=== PATIENT | female | born 1955 | race Two or more races ===

== ENCOUNTER 2022-05-18 10:06 | Outpatient (REF) | payer OTHER, SELFPAY ==
--- NOTE | ~2022-05-18 | XR_ITS ---
EXAMINATION: XR SACROILIAC JOINT XR LUMBAR SPINE WITH BENDING VIEWS CLINICAL INFORMATION: Spondylosis COMPARISON: None TECHNIQUE: 3 views SI joint and 7 views lumbar spine with bending views of lumbar spine FINDINGS: LUMBAR SPINE: There is normal lumbar lordosis. The vertebral heights and alignment is normal. There is loss of L2-L3, L3-L4, L4-L5 disc heights with mild ventral spondylosis. There is mild dextroscoliosis dorsolumbar spine. No aggressive lytic or sclerotic process. SACROILIAC JOINTS: The SI joints are symmetrical and normal. XR/XR sacroiliac joint min 3V IMPRESSION: Mild degenerative disc changes L2-L3, L3-L4, L4-L5 disc levels with mild ventral spondylosis. No visible acute fracture, dislocation or lytic process seen.
--- NOTE | ~2022-05-18 | XR_ITS ---
EXAMINATION: XR SACROILIAC JOINT XR LUMBAR SPINE WITH BENDING VIEWS CLINICAL INFORMATION: Spondylosis COMPARISON: None TECHNIQUE: 3 views SI joint and 7 views lumbar spine with bending views of lumbar spine FINDINGS: LUMBAR SPINE: There is normal lumbar lordosis. The vertebral heights and alignment is normal. There is loss of L2-L3, L3-L4, L4-L5 disc heights with mild ventral spondylosis. There is mild dextroscoliosis dorsolumbar spine. No aggressive lytic or sclerotic process. SACROILIAC JOINTS: The SI joints are symmetrical and normal. XR/XR lumbar spine 6V w bending IMPRESSION: Mild degenerative disc changes L2-L3, L3-L4, L4-L5 disc levels with mild ventral spondylosis. No visible acute fracture, dislocation or lytic process seen.
== END 2022-05-18 10:07 | disposition home or self-care (01) ==
LOC: HO.XRAY 10:06
PROVIDERS: PCP Internal Medicine; Visit Provider Nurse Practitioner Family
DX: M53.3 Sacrococcygeal disorders, not elsewhere classified (principal); M43.07 Spondylolysis, lumbosacral region; M19.90 Unspecified osteoarthritis, unspecified site
CPT/HCPCS: 72114; 72202

== ENCOUNTER 2022-05-22 09:45 | Outpatient (REF) | payer OTHER, SELFPAY ==
--- NOTE | ~2022-05-22 | MR_ITS ---
EXAMINATION: MR CERVICAL SPINE WITHOUT CONTRAST CLINICAL INFORMATION: Cervical radiculopathy. COMPARISON: No relevant prior imaging. TECHNIQUE: MRI of the cervical spine was obtained using routine sequences without contrast. FINDINGS: There is a slight anterolisthesis of C3 on C4 and slight retrolisthesis of C6 on C7. Alignment is otherwise normal. Vertebral heights are preserved. There is bone marrow edema involving the articular pillars of the left C3-C4 facet joint best depicted on sagittal STIR image 3 of 12 series 5. There are mixed degenerative endplate changes at C4-C5. There is loss of intervertebral disc height and T2 signal intensity at multiple levels related to disc degeneration. There is no cord compression or abnormal intramedullary signal changes. The cervicomedullary junction is normal. Limited visualization of the posterior fossa reveals no abnormal finding. Occipital condyles and lateral C1 masses are intact. The atlantodental joint and both C1-C2 articular facets are unremarkable. At C2-C3 the annular contour is normal. No canal or neuroforaminal compromise. At C3-C4 there is a slightly bulging disc. No canal stenosis. Asymmetric uncovertebral joint spurring and facet degenerative change causes mild left neuroforaminal encroachment. At C4-C5 there is a slightly bulging disc. Mild canal stenosis. Uncovertebral joint spurring and facet degenerative change causes moderate right neuroforaminal encroachment. At C5-C6 there is a slightly bulging disc. Mild canal stenosis. No neuroforaminal encroachment. At C6-C7 there is a slightly bulging disc. Mild canal stenosis. Asymmetric uncovertebral joint spurring causes mild left neuroforaminal encroachment. At C7-T1 the annular contour is normal. No canal or neuroforaminal compromise. Visualized soft tissues of the neck are normal. Vascular flow voids are grossly maintained. MR/MR cervical spine wo con IMPRESSION: There is multilevel degenerative spondylosis of the cervical spine. There is mild canal stenosis at levels of C4-C5, C5-C6, and C6-C7. No cord compression or abnormal intramedullary signal changes. Of note there is bone marrow edema involving articular pillars of the left articular facet joint and C3-C4 possibly representing aseptic inflammation in the setting of facet arthrosis. Asymmetric uncovertebral joint spurring and facet degenerative change at C4-C5 causes moderate right neuroforaminal encroachment. There is also mild left neuroforaminal narrowing at the levels of C3-C4 and C6-C7.
== END 2022-05-22 09:46 | disposition home or self-care (01) ==
LOC: HO.MRI 09:45
PROVIDERS: Visit Provider Nurse Practitioner Family
DX: M54.12 Radiculopathy, cervical region (principal); M47.812 Spondylosis without myelopathy or radiculopathy, cervical region
CPT/HCPCS: 72141

== ENCOUNTER 2022-08-14 06:24 | Outpatient (REF) | payer OTHER, SELFPAY ==
--- NOTE | ~2022-08-14 | FL_ITS ---
EXAMINATION: XR FLUOROSCOPY WITH IMAGES CLINICAL INFORMATION: M25.512 - Pain in left shoulder COMPARISON: None. TECHNIQUE: Fluoroscopy performed by Dr. Ganesh Bernal. Fluoroscopy time: 0.1 minutes. Cumulative Dose: 0.557 mGy. DAP: 0.152 Gy-cm2. Images: 1. FINDINGS: There is spinal needle with tip overlying the superior medial humeral head. There is intracapsular contrast in the shoulder joint capsule. No visible vascular communication. The acromioclavicular alignment is normal. There is probable calcific tendinosis in region of the distal superior rotator cuff. FL/FL guidance in treatment room IMPRESSION: Fluoroscopy for pain management procedure.
== END 2022-08-14 06:25 | disposition home or self-care (01) ==
LOC: CF 06:24
PROVIDERS: Visit Provider Anesthesiology
DX: M25.512 Pain in left shoulder (principal); M54.12 Radiculopathy, cervical region; M43.07 Spondylolysis, lumbosacral region; M47.812 Spondylosis without myelopathy or radiculopathy, cervical region; M53.3 Sacrococcygeal disorders, not elsewhere classified; M79.7 Fibromyalgia
CPT/HCPCS: 20610; J1100; J2795; J3300; Q9966

== ENCOUNTER 2022-09-13 10:07 | Outpatient (REF) | payer OTHER, SELFPAY ==
--- NOTE | ~2022-09-13 | XR_ITS ---
EXAMINATION: XR SHOULDER, LEFT CLINICAL INFORMATION: Pain in the left shoulder COMPARISON: None TECHNIQUE: AP external rotation, Grashey, scapular Y, and axillary views of the left shoulder. FINDINGS: There is localized amorphous appearing calcification in the region of the superior rotator cuff superior to the greater tuberosity. This extends over approximately 1 cm transverse. Acromioclavicular joint mild arthrosis. Glenohumeral joint: Normal. Surrounding bone and soft tissues are markable. XR/XR shoulder LT min 2V IMPRESSION: 1. Calcific tendinosis/calcific tendinitis of the rotator cuff. 2. Mild arthrosis of the acromioclavicular joint.
== END 2022-09-13 10:08 | disposition home or self-care (01) ==
LOC: HO.XRAY 10:07
PROVIDERS: PCP Internal Medicine; Visit Provider Nurse Practitioner Family
DX: M25.512 Pain in left shoulder (principal)
CPT/HCPCS: 73030

== ENCOUNTER 2022-09-18 06:20 | Outpatient (REF) | payer OTHER, SELFPAY ==
--- NOTE | ~2022-09-18 | FL_ITS ---
EXAMINATION: XR FLUOROSCOPY WITH IMAGES CLINICAL INFORMATION: M47.812 - Spondylosis without myelopathy or radiculopathy, cervical region COMPARISON: MR cervical spine 05/22/2022 TECHNIQUE: Fluoroscopy Supervised By: Dr. Ganesh Bernal. Fluoroscopy Time: 0.2 minutes. Cumulative Dose: 2.79 mGy. DAP: 0.593 Gycm2. Images: 3. FINDINGS: There are spinal needles overlying the left lateral masses cervical spine approximately at C4, C5, and C6. There is contrast in the paraspinal soft tissues and nerve sheaths. No visible vascular communication. FL/FL guidance in treatment room IMPRESSION: Fluoroscopy for pain management procedure.
== END 2022-09-18 06:21 | disposition home or self-care (01) ==
LOC: CF 06:20
PROVIDERS: Visit Provider Anesthesiology
DX: M47.812 Spondylosis without myelopathy or radiculopathy, cervical region (principal); M75.32 Calcific tendinitis of left shoulder
CPT/HCPCS: 64490; 64491

== ENCOUNTER 2022-11-01 11:00 | Outpatient (RCR) | payer OTHER, SELFPAY ==
--- NOTE | 2022-09-26 18:56 | MHC.PT.EP ---
[facility] [place] Office [place] Office [place] Office [address] Joan Ewing [address] [phone] F: [phone] F: [phone] F: [phone] F: [phone] Physical Therapy Plan of Care Date of Evaluation: Date of Surgery: Diagnosis: Calcific tendonitis L shoulder, cervical radiculopathy Assessment: Pt is a 67 y/o female with fibromyalgia who is referred to PT for eval and treat of calcific tendonitis of L shoulder resulting in decreased tolerance for reaching high shelves, dressing pullovers, laying on her L side, rotating her head, driving, performing HH chores as well as disturbed sleep secondary to decreased L shoulder and cervical ROM and strength, increased cervical and shoulder tissue tension, as well as cervical arthrosis, L shoulder calcific tendonosis, and L foraminal narrowing noted on imaging, and pain. Pt is deemed an appropriate candidate to receive skilled PT services to address their physical impairments in order to improve their functional ability. Frequency and Duration: The patient will be seen 2 x / wk x 5 wks. Short Term Goals: Initiate HEP. [employer] Operator Goals: I with HEP. Pt will be able to reach high shelves with managed Sx; initial: 06/16. Pt will be able to dress pull overs with < 4/10 difficulty / discomfort; initial 8/10. Pt will achieve symmetrical cervical AROM rotation. Pt will report no longer disturbed of sleep d/t cervical pain. Pt will report she can drive her car as long as she'd like with slight pain in her neck; initial: cannot drive as long as she'd like d/t moderate pain in her neck. Treatment Plan: Modalities to reduce pain, spasms and effusion. Manual therapy to restore motion and function. Therapeutic exercise to improve strength and flexibility. Neuromuscular re-education for posture and balance. Therapeutic activities to return to functional activities of daily living. Electronically signed by: Robe Bravo PT Please sign and return to therapist. Thank you for your referral.
--- NOTE | 2022-11-01 16:52 | MHC.PT.DC ---
[facility] [place] Office [place] Office [place] Office [address] Ewing [address] [phone] F: [phone] F: [phone] F: [phone] F: [phone] Physical Therapy Discharge Report Diagnosis: Calcific tendonitis L shoulder, cervical radiculopathy Date of Surgery: Date of Evaluation: 09/26/22 Date of Discharge: 11/01/22 Treatments to Date: 8 Cancellations to Date: No Shows to Date: Discharge Status: Improved Function Independent with HEP Recommend MD Follow-up Discharge Summary: Juliet has been an active and motivated participant in her therapy in and out of the clinic addressing her cervical and L shoulder issues. She has achieved her therapeutic goals as far as improving her cervical ROM, pain and function as well as her radiating symptom to her L scapula; she does however persist with sharp lateral L arm pain greatest about her deltoid tuberosity and has plateaued her progress in this area. her passive ROM does not suggest capsular tightness at this time and she is I with a program of ROM and scapular strengthening which she is motivated to continue though she does persist with decreased ability for shoulder AROM abduction, ER, and flexion activities and other management likely appropriate. Cervical disability outcome measure NDI improved form 42% to 20%, shoulder disability outcome measure improved from 80% to 62%. Electronically signed by: Robe Bravo PT. Please sign and return to therapist. Thank you for your referral.
== END 2022-11-01 16:53 | disposition home or self-care (01) ==
LOC: HO.PTCHIC 11:00
PROVIDERS: PCP Internal Medicine; Visit Provider Nurse Practitioner Family
DX: M43.07 Spondylolysis, lumbosacral region (principal); M47.812 Spondylosis without myelopathy or radiculopathy, cervical region; M54.12 Radiculopathy, cervical region; M75.32 Calcific tendinitis of left shoulder
CPT/HCPCS: 97110; 97140; 97161

== ENCOUNTER → 2022-11-23 09:59 | Outpatient (BNVA) | payer MEDICARE, SELFPAY | PROVIDERS: PCP Internal Medicine; Visit Provider Orthopaedic Surgery | DX: M75.32 Calcific tendinitis of left shoulder (principal); M54.12 Radiculopathy, cervical region | CPT/HCPCS: 20610; 99202; J1100 ==

== ENCOUNTER 2022-11-27 18:27 | Outpatient (REF) | payer OTHER, MEDICARE, SELFPAY ==
--- NOTE | ~2022-11-27 | MR_ITS ---
EXAMINATION: MR SHOULDER WITHOUT CONTRAST, LEFT CLINICAL INFORMATION: Left shoulder pain and limited range of motion. Calcific tendinitis. COMPARISON: Left shoulder radiographs dated 09/13/2022. TECHNIQUE: Multisequence MR imaging of the left shoulder was obtained without contrast on a high-field strength scanner. FINDINGS: ROTATOR CUFF: Heterogeneously low-T1/low-T2 signal throughout the distal aspect of the supraspinatus tendon, corresponding to prior calcifications on the radiographs and indicating calcific tendinitis. There is diffuse increased T2 signal throughout the bursal surface of the supraspinatus tendon, consistent with irregular fraying/tearing measuring up to 2.0 x 2.4 cm (AP by ML). No full-thickness component to the tear. No muscle atrophy or fatty infiltration. BICEPS: Intact. CORACOACROMIAL ARCH: The undersurface of the acromion is attenuated with small subacromial spurs. Mild acromioclavicular osteoarthritis. Trace fluid and edema within the subacromial-subdeltoid bursa, consistent with minimal bursitis. LABRUM/CAPSULE: No displaced labral tear. Intact joint capsule. GLENOHUMERAL JOINT/MARROW: Intact articular cartilage. No marrow edema or evidence of acute osseous injury. MR/MR shoulder LT wo con IMPRESSION: 1. Distal supraspinatus calcific tendinitis with irregular bursal surface fraying/tearing measuring 2.0 x 2.4 cm (AP by ML). No full-thickness component to the tear. 2. Mild acromioclavicular osteoarthritis with small subacromial spurs. 3. Minimal subacromial subdeltoid bursitis.
== END 2022-11-27 18:28 | disposition home or self-care (01) ==
LOC: HO.MRI 18:27
PROVIDERS: PCP Internal Medicine; Visit Provider Orthopaedic Surgery
DX: M75.32 Calcific tendinitis of left shoulder (principal)
CPT/HCPCS: 73221

== ENCOUNTER → 2022-12-10 08:40 | Outpatient (BNVA) | payer OTHER, MEDICARE, SELFPAY | PROVIDERS: PCP Internal Medicine; Visit Provider Orthopaedic Surgery | DX: Z13.89 Encounter for screening for other disorder (principal) ==

== ENCOUNTER 2023-01-02 07:33 | Day surgery (SDC) | payer MEDICARE, SELFPAY ==
--- NOTE | 2023-01-01 09:53 | P.CONAN_ITS ---
Documented by User: Jaki Lee NP 01/01/23 09:56 HPI - Anesthesia Eval Consult details Narrative: 67yo F for Shoulder Arthroscopy possible rotator cuff repair PMFSH Active Problems Active Problems: All Active Problems (Updated 12/27/22 @ 12:52 by Vidhi Giraldo RN) BRAD positive (Acute) GERD (gastroesophageal reflux disease) (Acute) Allergic rhinitis (Acute) Irritable bowel syndrome (Acute) History of squamous cell carcinoma of skin (Acute) Neck pain (Acute) Cervical osteoarthritis (Acute) Pain, joint, multiple sites (Acute) Osteoarthritis (Acute) Osteoarthritis, hand (Acute) Fibromyalgia (Acute) Sacroiliac joint dysfunction (Acute) Lumbosacral spondylolysis (Acute) Cervical radiculopathy (Acute) Left shoulder pain (Acute) Calcific tendinitis of left shoulder (Acute) Incomplete tear of left rotator cuff (Acute) Past Medical History Medical History (Updated 12/27/22 @ 12:52 by Vidhi Giraldo RN) Allergic rhinitis Depression Fibromyalgia GERD (gastroesophageal reflux disease) History of benign breast biopsy Hypercholesteremia IBS (irritable bowel syndrome) Squamous cell carcinoma in situ Surgical History Surgical History (Updated 12/27/22 @ 12:44 by Vidhi Giraldo RN) History of esophagogastroduodenoscopy (EGD) History of hand surgery Hx of section Hx of colonoscopy Social History Social History Household Members: Spouse Housing: House Are you a primary vision care associate to a significant other at home: No Do you presently have visiting nurse or other home services: No Alcohol intake: current Alcohol intake frequency: a few times a month Alcohol type: wine Patient Tobacco Use Status: Never used Tobacco e-Cigarette/Vaping Use: Never Used Use of substances other than those prescribed or required for medical reasons: No Are you DNR?: No Advance Directives: No Advance Directives Information Provided: Yes Recently lost weight without trying: No Nutrition Risks: No Nutritional Risk service: No Current occupational status: retired Current occupation: Retired as of today Meds Allergies Allergy/AdvReac Type Severity Reaction Status Date / Time doxycycline Allergy Intermediate Nausea and Verified 12/27/22 12:45 Vomiting metronidazole [From Flagyl] Allergy Intermediate STOMACH Verified 12/27/22 12:45 ACHE/? HEADACHES sulfamethoxazole Allergy Intermediate Nausea and Verified 12/27/22 12:45 [From Bactrim] Vomiting sumatriptan [From Imitrex] Allergy Intermediate Nausea and Verified 12/27/22 12:45 Vomiting trimethoprim [From Bactrim] Allergy Intermediate Nausea and Verified 12/27/22 12:45 Vomiting Home Medications Medication Instructions Recorded Confirmed Last Taken Type bupropion HCl 300 mg 24 hr tablet, 300 mg PO QAM 04/05/22 12/27/22 01/02/23 History extended release buspirone 15 mg tablet 15 mg PO BID 04/05/22 12/27/22 01/02/23 History calcium carbonate 600 mg-vitamin cap PO DAILY 04/05/22 04/05/22 Unknown History D3 5 mcg (200 unit) capsule (Calcium 600 + D(3)) clotrimazole-betamethasone 1 1 appl topical BID PRN Rash 04/05/22 12/27/22 Unknown History %-0.05 % topical cream diclofenac sodium 1 % topical gel 2 g topical QID PRN Pain 04/05/22 12/27/22 Unknown History (Arthritis Pain (diclofenac)) estradiol 10 mcg vaginal tablet 10 mcg vaginal 2XW 04/05/22 12/27/22 Unknown History (Yuvafem) fluticasone propionate 50 1 spray intranasal BID 04/05/22 12/27/22 Unknown His tory mcg/actuation nasal spray,suspension (Allergy Relief (fluticasone)) garlic 200 mg tablet 200 mg PO DAILY 04/05/22 12/27/22 Unknown History omega-3 fatty acids 1,000 mg 1,000 mg PO DAILY 04/05/22 12/27/22 Unknown History capsule trazodone 100 mg tablet 100 mg PO BEDTIME 04/05/22 04/05/22 Unknown History valacyclovir 500 mg tablet 500 mg PO DAILY 04/05/22 12/27/22 Unknown History duloxetine 20 mg capsule,delayed 20 mg PO BID 01/02/23 01/02/23 01/02/23 History release (Cymbalta) Exam Exam Date and Time: January 01, 2023 0952 Assessment and Plan Assessment Anesthesia Assessment: Chart Reviewed Documented by User: Micha Kimball MD 01/02/23 09:00 [facility] Past Medical History Medical History (Updated 12/27/22 @ 12:52 by Vidhi Giraldo, RN) Allergic rhinitis Depression Fibromyalgia GERD (gastroesophageal reflux disease) History of benign breast biopsy Hypercholesteremia IBS (irritable bowel syndrome) Squamous cell carcinoma in situ Family History Family history of problems with anesthesia: No Surgical History Surgical History (Updated 12/27/22 @ 12:44 by Vidhi Giraldo, THU) History of esophagogastroduodenoscopy (EGD) History of hand surgery Hx of section Hx of colonoscopy History of Problems with Anesthesia: No Social History Social History Household Members: Spouse Housing: House Are you a primary vision care associate to a significant other at home: No Do you presently have visiting nurse or other home services: No Alcohol intake: current Alcohol intake frequency: a few times a month Alcohol type: wine Patient Tobacco Use Status: Never used Tobacco e-Cigarette/Vaping Use: Never Used Use of substances other than those prescribed or required for medical reasons: No Are you DNR?: No Advance Directives: No Advance Directives Information Provided: Yes Recently lost weight without trying: No Nutrition Risks: No Nutritional Risk service: No Current occupational status: retired Current occupation: Retired as of today Meds Allergies Allergy/AdvReac Type Severity Reaction Status Date / Time doxycycline Allergy Intermediate Nausea and Verified 12/27/22 12:45 Vomiting metronidazole [From Flagyl] Allergy Intermediate STOMACH Verified 12/27/22 12:45 ACHE/? HEADACHES sulfamethoxazole Allergy Intermediate Nausea and Verified 12/27/22 12:45 [From Bactrim] Vomiting sumatriptan [From Imitrex] Allergy Intermediate Nausea and Verified 12/27/22 12:45 Vomiting trimethoprim [From Bactrim] Allergy Intermediate Nausea and Verified 12/27/22 12:45 Vomiting Home Medications Medication Instructions Recorded Confirmed Last Taken Type bupropion HCl 300 mg 24 hr tablet, 300 mg PO QAM 04/05/22 12/27/22 01/02/23 History extended release buspirone 15 mg tablet 15 mg PO BID 04/05/22 12/27/22 01/02/23 History calcium carbonate 600 mg-vitamin cap PO DAILY 04/05/22 04/05/22 Unknown History D3 5 mcg (200 unit) capsule (Calcium 600 + D(3)) clotrimazole-betamethasone 1 1 appl topical BID PRN Rash 04/05/22 12/27/22 Unknown History %-0.05 % topical cream diclofenac sodium 1 % topical gel 2 g topical QID PRN Pain 04/05/22 12/27/22 Unknown History (Arthritis Pain (diclofenac)) estradiol 10 mcg vaginal tablet 10 mcg vaginal 2XW 04/05/22 12/27/22 Unknown History (Yuvafem) fluticasone propionate 50 1 spray intranasal BID 04/05/22 12/27/22 Unknown History mcg/actuation nasal spray,suspension (Allergy Relief (fluticasone)) garlic 200 mg tablet 200 mg PO DAILY 04/05/22 12/27/22 Unknown History omega-3 fatty acids 1,000 mg 1,000 mg PO DAILY 04/05/22 12/27/22 Unknown History capsule trazodone 100 mg tablet 100 mg PO BEDTIME 04/05/22 04/05/22 Unknown History valacyclovir 500 mg tablet 500 mg PO DAILY 04/05/22 12/27/22 Unknown History duloxetine 20 mg capsule,delayed 20 mg PO BID 01/02/23 01/02/23 01/02/23 History release (Cymbalta) Exam Airway Mallampati Class: II TM Dist: >3cm Denture: Upper and Lower Loose/Missing/Broken Teeth: No Heart: rrr Lungs: cta Assessment and Plan Final Anesthetic Review Family History of Problems with Anesthesia: No History of Problems with Anesthesia: No NPO: Yes ASA Class: II Final Preanesthetic Review: No Changes in Pt Med Stat, Meds/Allgs Chart Reviewed, Consent Obtained/Reviewed and Anes Risks/Benef Reviewed Patient Risk: Intermediate Procedure Risk: Intermediate Anesthetic Plan Anesthetic Plan: GA and Regional Block Disposition: Standard PACU
[2023-01-02] VITALS (7 sets, daily range): BP systolic 97–132; BP diastolic 58–81; PULSE 75–84; RESP 16–18; TEMP 36.1–36.9; O2SAT 94–100; BMI 23.4
[2023-01-02] MEDS: Lactated Ringers 1,000 ML 100 ML IVCONT (08:18)
--- NOTE | 2023-01-02 12:19 | PM.OP ---
Brief Operative Note Date of Service: 01/02/23 Pre-op diagnosis: Left calcific tendonitis Post-op diagnosis: other (1) left calcific tendonitis 2) left RTC tear) Procedure: Resection calcium and RTC repair, left shoulder Implants: [employer] helacoil 4.75 x 1 and 2 5.0 knotless healcoil. Regenton bioinduction patch 20mm x 25 mm Surgeon: Say Patterson MD Anesthesia: GETA and regional Was an Engineering Librarian used for this Procedure?: Yes Engineering Librarian: Melissa Kiser Estimated blood loss (mL): 20 IV fluids (mL): 1,000 Pathology: none sent Condition: stable Disposition: PACU
--- NOTE | 2023-01-11 16:17 | P.OP_ITS ---
Operative Note Operative Note Date of Service: 01/02/23 Narrative: Date of Service: 01/02/23 Pre-op diagnosis: Left calcific tendonitis Post-op diagnosis: other (1) left calcific tendonitis 2) left RTC tear) Procedure: Resection calcium and RTC repair, left shoulder Implants: Willett and Nephew helacoil 4.75 x 1 and 2 5.0 knotless healcoil. Regenton bioinduction patch 20mm x 25 mm Surgeon: Say Patterson MD Anesthesia: GETA and regional Was an Overlock Operator used for this Procedure?: Yes Overlock Operator: Melissa Kiser Estimated blood loss (mL): 20 IV fluids (mL): 1,000 Pathology: none sent Condition: stable Disposition: PACU Procedure in detail: Patient was brought to the operating room and placed the the beach chair position. All bony prominences were well padded and the limb was prepped and draped in standard sterile fashion. A time out was called to identify proper site, proper procedure and proper surgeon. IV antibiotics per weight were administered. I began by making a posterolateral stab incision with a 15 blade. A blunt trochar was placed into the glenohumeral joint and I insufflated the joint with saline and a 30 degree arthroscope was placed. I established an outside- in anterior portal just distal to the biceps tendon. I then began my inspection of the glenohumeral joint. There was an intact biceps, biceps anchor- labral complex and subscapularis. The articular cartilage was intact. There was a no evidence of undersurface RTC tear. The subcapularis was intact. I debrided the anterior labrum minimally. I then removed the trochar and entered the subacromial space. A direct lateral portal was then established and I performed a bursectomy. The cuff was then examined. The was a high grade partial thickness tear of the supraspinatus. As I debrided wthiw with a shaver there was calcium sequestered int the tendon. This was also debrided. A thin section of cuff remained and I converted this to a full thickness tear. I then placed one medial row double loaded anchors and then brought the suture tape through the medial cuff. I added two looped sutures at the anterior and posterior most aspect of the tear. I then debrided the bare area down to bleeding bone and, using a cross bridge configuration, broughtthese limbs to each of two lateral anchors. This re-approximated the cuff anatomy near anatomically. The quality of the tissue was not ideal and so a Regeneton bio- inductive implant was applied. I then performed a 5 mm subacromial decompression. Once I was satisfied with the repair final images were captured and I removed all instrumentation. Portals were closed with nylon. Patient was placed in an abduction sling, extubated and brought to the recovery room in stable condition. There were no known complications.
== END 2023-01-02 14:11 | disposition home or self-care (01) ==
PROVIDERS: PCP Internal Medicine; Visit Provider Orthopaedic Surgery
PROC: (CPT 29805; principal; 2023-01-02 09:50)
DX: M75.32 Calcific tendinitis of left shoulder (principal); M75.112 Incomplete rotator cuff tear or rupture of left shoulder, not specified as traumatic; M19.012 Primary osteoarthritis, left shoulder; M54.12 Radiculopathy, cervical region; M79.7 Fibromyalgia; Z79.899 Other long term (current) drug therapy; Z88.2 Allergy status to sulfonamides; Z88.8 Allergy status to other drugs, medicaments and biological substances
CPT/HCPCS: 29827; 29826; 29822; C1713; C1781; J0171; J0690; J1885; J2405

== ENCOUNTER → 2023-01-07 08:29 | Outpatient (BNVA) | payer MEDICARE, SELFPAY | PROVIDERS: PCP Internal Medicine; Visit Provider Physician Assistant | DX: Z47.89 Encounter for other orthopedic aftercare (principal); M75.32 Calcific tendinitis of left shoulder; M75.112 Incomplete rotator cuff tear or rupture of left shoulder, not specified as traumatic; M54.12 Radiculopathy, cervical region | CPT/HCPCS: 99212 ==

== ENCOUNTER → 2023-02-04 14:23 | Outpatient (BNVA) | payer MEDICARE, SELFPAY | PROVIDERS: PCP Internal Medicine; Visit Provider Physician Assistant | DX: Z47.89 Encounter for other orthopedic aftercare (principal); Z98.890 Other specified postprocedural states | CPT/HCPCS: 99212 ==

== ENCOUNTER → 2023-03-18 11:02 | Outpatient (BNVA) | payer MEDICARE, SELFPAY | PROVIDERS: PCP Internal Medicine; Visit Provider Orthopaedic Surgery | DX: Z47.89 Encounter for other orthopedic aftercare (principal); Z98.890 Other specified postprocedural states | CPT/HCPCS: 99212 ==

== ENCOUNTER 2023-04-17 11:00 | Outpatient (RCR) | payer MEDICARE, SELFPAY ==
--- NOTE | 2023-01-09 13:32 | MHC.PT.EP ---
[facility] [place] Office [place] Office [place] Office [address] Joan Ewing [address] [phone] F: [phone] F: [phone] F: [phone] F: [phone] Physical Therapy Plan of Care Date of Evaluation: Date of Surgery: 01/02/23 Diagnosis: other specified postprocedural states s/p RTC Repair 01/02 Assessment: 67 y/o RHD female s/p L RTC repair with calcific resection 01/02/23. She arrives with [employer] abduction brace which she reports not removing since surgery. Currently reports difficulty with everything and her helps with self care, chores, laundry. Examination limited as pt fearful to remove sling and to move arm. Currently she presents wtih decreased shoulder/elbow ROM, decreased strength (not formally assessed secondary to surgical precautions), increased swelling, increased pain, and impaired postural awareness. Significant time spent on educated pt on rehab process, healing timelines, safety, and gentle elbow/wrist ROM at this time. Recommend PT 2x/week for 12 weeks to address impairments, implement HEP, and optimize functional mobility. Frequency and Duration: The patient will be seen 2x/week for 12 weeks Short Term Goals: 6 weeks Pt will demonstrate increased L elbow AROM to for decreased risk of concomitant injury in 2 weeks. Pt will demonstrate increased L shoulder flexion PROM to 120 deg and R shoulder abduction PROM to 90 Pt will demonstrate increased L shoulder ER to 45 deg at 45 deg abd Pt will demonstrate compliance wih HEP Shift Manager Goals: 12 weeks Pt will demonstrate L shoulder flexion and abduction AROM to 160 deg for improved ability to reach top shelf of a cabinet. Pt will demonstrate L shoulder IR AROM to lumbar spine and R shoulder ER to CT junction for improved ability to wash back. Pt will demonstrate L shoulder and periscapular strength at least 4-/5 for improved ability to carry objects Treatment Plan: Modalities to reduce pain, spasms and effusion. Manual therapy to restore motion and function. Therapeutic exercise to improve strength and flexibility. Neuromuscular re-education for posture and balance. Therapeutic activities to return to functional activities of daily living. Electronically signed by: Rose Ceballos PT Please sign and return to therapist. Thank you for your referral.
--- NOTE | 2023-04-17 12:35 | MHC.PT.DC ---
[facility] [place] Office [place] [facility] [place] [facility] [address] Joan Ewing [address] [phone] F: [phone] F: [phone] F: [phone] F: [phone] Physical Therapy Discharge Report Diagnosis: other specified postprocedural states s/p RTC Repair 01/02 Date of Surgery: 01/02/23 Date of Evaluation: 01/09/23 Date of Discharge: 04/17/23 Treatments to Date: Cancellations to Date: 0 No Shows to Date: Discharge Status: Achieved Goals Improved Function Independent with HEP Discharge Summary: She is appropriate for d/c secondary to meeting all goals, improved shoulder ROM/strength, and I with HEP. No further questions. Electronically signed by: Rose Ceballos PT Please sign and return to therapist. Thank you for your referral.
== END 2023-04-17 12:35 | disposition home or self-care (01) ==
LOC: HO.PT 11:00
PROVIDERS: Visit Provider Physician Assistant
DX: Z98.890 Other specified postprocedural states (principal)
CPT/HCPCS: 97110; 97140; 97162; 97530

== ENCOUNTER 2023-05-10 11:28 | Outpatient (AMB) | payer MEDICARE, SELFPAY ==
[2023-05-10 11:36] VITALS: BMI 24.0
--- NOTE | 2023-05-10 11:36 | MHC.OFFVIS ---
Intake Vital Signs 05/10/23 11:36 Height 5 ft 5 in Weight 144 lb BMI 24.0 Intake Visit Reasons: New Prob- Right shoulder pain Intake Note: Juliet is a 68 year old female who presents today for a new problem visit with complaints of right shoulder pain. Hx of left RTC Repair 01/01/23. States she had fall on March landing on her right side. Limited ROM. Denies neck pain, numbness or tingling. Allergies doxycycline Allergy (Intermediate, Verified 05/10/23 11:56) Nausea and Vomiting metronidazole [From Flagyl] Allergy (Intermediate, Verified 05/10/23 11:56) STOMACH ACHE/? HEADACHES sulfamethoxazole [From Bactrim] Allergy (Intermediate, Verified 05/10/23 11:56) Nausea and Vomiting sumatriptan [From Imitrex] Allergy (Intermediate, Verified 05/10/23 11:56) Nausea and Vomiting trimethoprim [From Bactrim] Allergy (Intermediate, Verified 05/10/23 11:56) Nausea and Vomiting HPI New Prob- Right shoulder pain HPI Details Juliet is a 68 year old woman who presents with ~6 weeks right shoulder pain. She has pain with daily activity, she says all the time , including at rest, and is limited in her ROM. She says she fell onto her right shoulder on ~04/05/23 and had pain and bruising in her arm. She is unable to take NSAIDs She is ~4 months S/P left RTC repair. [facility] Medical History Allergic rhinitis Depression Fibromyalgia GERD (gastroesophageal reflux disease) History of benign breast biopsy Hypercholesteremia IBS (irritable bowel syndrome) Squamous cell carcinoma in situ Surgical History History of esophagogastroduodenoscopy (EGD) History of hand surgery Hx of section Hx of colonoscopy Social History Household Members: Spouse Housing: House Are you a primary family day care provider to a significant other at home: No Do you presently have visiting nurse or other home services: No 75 years or older and lives alone: No Alcohol intake: current Alcohol intake frequency: a few times a month Alcohol type: wine Patient Tobacco Use Status: Never used Tobacco e-Cigarette/Vaping Use: Never Used service: No Current occupational status: retired Current occupation: Retired as of today Review of Systems Const All systems reviewed & are unremarkable except as noted in HPI and below Physical Exam Vital Signs: BMI result Body Mass Index 24.0 Const General: no acute distress and alert Orientation/consciousness: patient oriented x3 Neuro General: patient oriented x3 Extrem Other: Right Shoulder: + drop-arm + hornblower's Intact deltoid Passive ROM painful but full Psych Appearance: grossly normal Affect: normal affect Attitude: cooperative Results Reviewed Results Reviewed: 05/10/23 12:04 Lidocaine HCl 2 % MPF [Xylocaine 2 % MPF] 5 ml .ROUTE .STK-MED ONE dexAMETHasone sod phosphate [Decadron] 4 mg .ROUTE .STK-MED ONE I personally reviewed relevant radiographs and they are unremarkable. Assessment & Plan Assessment & Plan (1) Strain of muscle(s) and tendon(s) of the rotator cuff of right shoulder, initial encounter: Code(s): S46.011A - Strain of muscle(s) and tendon(s) of the rotator cuff of right shoulder, initial encounter Plan: This is a 68 year old woman with right RTC strain, after a fall, DOI: ~04/05/23. She has pain constantly, both with activity and at rest, and is limited in her ROM. I ordered an MRI of her shoulder to assess for a RTC tear, and injected her right shoulder today, which she tolerated well. She will follow up when completed for review. Plan Scribed for Say Patterson MD by Irving Asencio, adjunct faculty for medical terminology, on 05/10/23 at 12:10 PM, EST. Orders: Orders MR shoulder RT wo con Today S46.011A - Strain of muscle(s) and tendon(s) of the rotator cuff of right shoulder, initial encounter Coding Level of Care Code Est Pt Level 4 (56756) Diagnoses Strain of muscle(s) and tendon(s) of the rotator cuff of right shoulder, initial encounter S46.011A
== END 2023-05-10 12:19 | disposition home or self-care (01) ==
PROVIDERS: PCP Internal Medicine; Visit Provider Orthopaedic Surgery
DX: S46.011A Strain of muscle(s) and tendon(s) of the rotator cuff of right shoulder, initial encounter (principal)
CPT/HCPCS: 20610; 99214

== ENCOUNTER → 2023-05-10 11:28 | Outpatient (BNVA) | payer MEDICARE, SELFPAY | PROVIDERS: PCP Internal Medicine; Visit Provider Orthopaedic Surgery | DX: S46.011A Strain of muscle(s) and tendon(s) of the rotator cuff of right shoulder, initial encounter (principal) | CPT/HCPCS: 20610; 99212; J1100 ==

== ENCOUNTER 2023-06-04 18:34 | Outpatient (REF) | payer MEDICARE, SELFPAY ==
--- NOTE | ~2023-06-04 | MR_ITS ---
EXAMINATION: MR SHOULDER WITHOUT CONTRAST, RIGHT CLINICAL INFORMATION: Right shoulder pain and limited range of motion. COMPARISON: Right shoulder and humerus radiograph dated 04/17/2023. TECHNIQUE: MRI of the shoulder without contrast was performed on a high-field scanner. FINDINGS: ROTATOR CUFF: Complete, full-thickness tear of the supraspinatus tendon extending to the anterior leading edge of the infraspinatus tendon. Overall tear measures up to 3.4 x 3.5 cm (AP x ML) with retraction of the torn tendon fibers proximal to the humeral head apex. Mild edema within the supraspinatus muscle, consistent with an acute strain. Mild supraspinatus muscle atrophy. Subscapularis tendinosis with articular surface partial tearing measuring up to 3.2 cm in ML dimension. Additional distal bursal surface fraying/partial tearing. BICEPS: Attenuation and flattening of the proximal long head biceps tendon with mild medial subluxation as it drapes over the lesser tuberosity, consistent with longitudinal partial tearing. CORACOACROMIAL ARCH: The undersurface of the acromion is curved with no subacromial spur. Mild acromioclavicular osteoarthritis. LABRUM/CAPSULE: No labral tear. Intact inferior joint capsule. GLENOHUMERAL JOINT/MARROW: Intact articular cartilage. Moderate joint effusion with synovitis. MR/MR shoulder RT wo con IMPRESSION: 1. Complete, full-thickness tear of the supraspinatus tendon extending to the anterior leading edge of the infraspinatus tendon. The torn tendon fibers are retracted proximal to the humeral head apex. Mild supraspinatus muscle strain. 2. Subscapularis tendinosis with articular surface partial tearing measuring 3.2 cm in ML dimension. Additional distal bursal surface fraying/partial tearing. 3. Attenuation and flattening of the proximal long head biceps tendon with mild medial subluxation as it drapes over the lesser tuberosity, consistent with longitudinal partial tearing. 4. Mild acromioclavicular osteoarthritis. 5. Moderate glenohumeral joint effusion with synovitis.
== END 2023-06-04 18:35 | disposition home or self-care (01) ==
LOC: HO.MRI 18:34
PROVIDERS: PCP Internal Medicine; Visit Provider Orthopaedic Surgery
DX: S46.011A Strain of muscle(s) and tendon(s) of the rotator cuff of right shoulder, initial encounter (principal)
CPT/HCPCS: 73221

== ENCOUNTER 2023-06-13 09:30 | Outpatient (AMB) | payer MEDICARE, SELFPAY ==
[2023-06-13 09:33] VITALS: BMI 24.0
--- NOTE | 2023-06-13 09:33 | A.OFFVIS_ITS ---
Intake Vital Signs 06/13/23 09:33 Height 5 ft 5 in Weight 144 lb BMI 24.0 Intake Visit Reasons: OV - Right Shoulder MRI Review Intake Note: Juliet is a 68 year old right hand dominant female who presents today for review of her right shoulder MRI. DOI: 03/29/23. Allergies doxycycline Allergy (Intermediate, Verified 06/13/23 09:33) Nausea and Vomiting metronidazole [From Flagyl] Allergy (Intermediate, Verified 06/13/23 09:33) STOMACH ACHE/? HEADACHES sulfamethoxazole [From Bactrim] Allergy (Intermediate, Verified 06/13/23 09:33) Nausea and Vomiting sumatriptan [From Imitrex] Allergy (Intermediate, Verified 06/13/23 09:33) Nausea and Vomiting trimethoprim [From Bactrim] Allergy (Intermediate, Verified 06/13/23 09:33) Nausea and Vomiting HPI OV - Right Shoulder MRI Review HPI Details Juliet is a 68 year old woman who presents for an MRI review of her right RTC strain, after a fall, DOI: 04/05/23. Injected 05/10/23 She continues to have pain with daily activity, as well as limited ROM. She says she has always had shoulder pain and issues prior to her fall, but her pain was not as severe until her fall. She is unable to take NSAIDs She is ~5 months S/P left RTC repair and says she has developed a new dull, throbbing ache ~2 weeks ago. She continues to perform her exercises at home. [facility] Medical History Fibromyalgia History of benign breast biopsy IBS (irritable bowel syndrome) Hypercholesteremia Squamous cell carcinoma in situ Depression Allergic rhinitis GERD (gastroesophageal reflux disease) Surgical History History of hand surgery Hx of section History of esophagogastroduodenoscopy (EGD) Hx of colonoscopy Social History Household Members: Spouse Housing: House Are you a primary director of critical care to a significant other at home: No Do you presently have visiting nurse or other home services: No Alcohol intake: current Alcohol intake frequency: a few times a month Alcohol type: wine Patient Tobacco Use Status: Never used Tobacco e-Cigarette/Vaping Use: Never Used service: No Current occupational status: retired Current occupation: Retired as of today Review of Systems Const All systems reviewed & are unremarkable except as noted in HPI and below Physical Exam Vital Signs: BMI result Body Mass Index 24.0 Const General: no acute distress, alert and awake Orientation/consciousness: patient oriented x3 HEENT Head: Yes normocephalic and Yes atraumatic Eyes EOM: EOMs intact bilaterally Resp Effort & Inspection: normal respiratory effort and able to speak in complete sentences Cardio Jugular venous distension: no JVD Skin General skin exam: turgor normal Rashes: no rashes Neuro General: patient oriented x3 Extrem Other: Right Shoulder: + drop-arm Psych Appearance: grossly normal Affect: normal affect Attitude: cooperative Results Reviewed Results Reviewed: I personally reviewed relevant MR images 1. Complete, full-thickness tear of the supraspinatus tendon extending to the anterior leading edge of the infraspinatus tendon. The torn tendon fibers are retracted proximal to the humeral head apex. Mild supraspinatus muscle strain. 2. Subscapularis tendinosis with articular surface partial tearing measuring 3.2 cm in ML dimension. Additional distal bursal surface fraying/partial tearing. 3. Attenuation and flattening of the proximal long head biceps tendon with mild medial subluxation as it drapes over the lesser tuberosity, consistent with longitudinal partial tearing. 4. Mild acromioclavicular osteoarthritis. 5. Moderate glenohumeral joint effusion with synovitis. Assessment & Plan Assessment & Plan (1) Right rotator cuff tear: Code(s): M75.101 - Unspecified rotator cuff tear or rupture of right shoulder, not specified as traumatic Plan: This is a 68 year old woman with a complete, full-thickness supraspinatus tear of the right shoulder, S/P fall, DOI: 04/05/23. She has pain with daily activity, worse with overhead activity and at night. There is minimal atrophy so I do suspect this is repairable but I did discuss the possibility that it is not repairable. I discussed her diagnosis, treatment options, and reviewed her MRI with her. I recommend a right shoulder RTC repair. I discussed the risks, benefits, and alternatives including, but not limited to, the risk of pain, infection, stiffness, need for further surgery as well as potential medical complications such as blood clots, pulmonary embolism and cardiac complications. I discussed the recovery timeline and process as well as the importance of PT. Juliet is a good candidate for this surgery, and she wishes to proceed with this decision. She will speak with Penny to schedule this procedure. (2) S/P rotator cuff repair: Comment: left shoulder rotator cuff repair and calcium resection 01/02/2023 [place] Code(s): Z98.890 - Other specified postprocedural states Plan: Continue with her at-home exercises and be mindful to not push through pain or overwork her shoulder. Plan Scribed for Say Patterson MD by Irving Asencio, medical staff services coordinator, on 06/13/23 at 9:55 AM, EST. Coding Level of Care Code Est Pt Level 4 (46820) Diagnoses Right rotator cuff tear M75.101 S/P rotator cuff repair Z98.890
== END 2023-06-13 10:01 | disposition home or self-care (01) ==
PROVIDERS: PCP Internal Medicine; Visit Provider Orthopaedic Surgery
DX: S46.011A Strain of muscle(s) and tendon(s) of the rotator cuff of right shoulder, initial encounter (principal)
CPT/HCPCS: 99214

== ENCOUNTER → 2023-06-13 09:30 | Outpatient (BNVA) | payer MEDICARE, SELFPAY | PROVIDERS: PCP Internal Medicine; Visit Provider Orthopaedic Surgery | DX: M75.101 Unspecified rotator cuff tear or rupture of right shoulder, not specified as traumatic (principal); Z98.890 Other specified postprocedural states | CPT/HCPCS: 99212 ==

== ENCOUNTER 2023-06-26 10:45 | Day surgery (SDC) | payer MEDICARE, SELFPAY ==
[2023-06-24 07:03] VITALS: BMI 24.0
[2023-06-26 12:06] VITALS: BP 142/84; PULSE 94; RESP 16; TEMP 37.3; O2SAT 98
--- NOTE | 2023-06-26 14:00 | HO.ANESPROP2 ---
Documented by User: Jaki Lee NP 06/25/23 08:31 HPI - Anesthesia Eval Consult details Narrative: 68yo F for Right Arthroscopic Rotator Cuff Repair s/p shoulder arthroscopy 12/2022 with GA-ETT 7 PMFSH Active Problems Active Problems: All Active Problems (Updated 06/13/23 @ 09:50 by Irving Asencio) Right rotator cuff tear (Acute) Strain of muscle(s) and tendon(s) of the rotator cuff of right shoulder, initial encounter (Acute) S/P rotator cuff repair (Acute) BRAD positive (Acute) GERD (gastroesophageal reflux disease) (Acute) Allergic rhinitis (Acute) Irritable bowel syndrome (Acute) History of squamous cell carcinoma of skin (Acute) Neck pain (Acute) Cervical osteoarthritis (Acute) Pain, joint, multiple sites (Acute) Osteoarthritis (Acute) Osteoarthritis, hand (Acute) Fibromyalgia (Acute) Sacroiliac joint dysfunction (Acute) Lumbosacral spondylolysis (Acute) Cervical radiculopathy (Acute) Left shoulder pain (Acute) Calcific tendinitis of left shoulder (Acute) Incomplete tear of left rotator cuff (Acute) Past Medical History Medical History Fibromyalgia History of benign breast biopsy IBS (irritable bowel syndrome) Hypercholesteremia Squamous cell carcinoma in situ Depression Allergic rhinitis GERD (gastroesophageal reflux disease) Family History Family history of problems with anesthesia: No Surgical History Surgical History History of hand surgery Hx of section History of esophagogastroduodenoscopy (EGD) Hx of colonoscopy History of Problems with Anesthesia: No Social History Social History Household Members: Spouse Housing: House Are you a primary customer care voice consultant to a significant other at home: No Do you presently have visiting nurse or other home services: No Alcohol intake: current Alcohol intake frequency: a few times a month Alcohol type: wine Patient Tobacco Use Status: Never used Tobacco e-Cigarette/Vaping Use: Never Used Second Hand Smoke Exposure: No Use of substances other than those prescribed or required for medical reasons: No Are you DNR?: No Advance Directives: No Advance Directives Information Provided: Yes Advance Directives on File: No service: No Current occupational status: retired Current occupation: Retired as of today Meds Allergies Allergy/AdvReac Type Severity Reaction Status Date / Time doxycycline Allergy Intermediate Nausea and Verified 06/13/23 09:33 Vomiting metronidazole [From Flagyl] Allergy Intermediate STOMACH Verified 06/13/23 09:33 ACHE/? HEADACHES sulfamethoxazole Allergy Intermediate Nausea and Verified 06/13/23 09:33 [From Bactrim] Vomiting sumatriptan [From Imitrex] Allergy Intermediate Nausea and Verified 06/13/23 09:33 Vomiting trimethoprim [From Bactrim] Allergy Intermediate Nausea and Verified 06/13/23 09:33 Vomiting Home Medications Medication Instructions Recorded Confirmed Last Taken Type bupropion HCl 300 mg 24 hr tablet, 300 mg PO QAM 04/05/22 12/27/22 01/02/23 History extended release buspirone 15 mg tablet 15 mg PO BID 04/05/22 12/27/22 01/02/23 History calcium carbonate 600 mg-vitamin cap PO DAILY 04/05/22 04/05/22 Unknown History D3 5 mcg (200 unit) capsule (Calcium 600 + D(3)) clotrimazole-betamethasone 1 1 appl topical BID PRN Rash 04/05/22 12/27/22 Unknown History %-0.05 % topical cream diclofenac sodium 1 % topical gel 2 g topical QID PRN Pain 04/05/22 12/27/22 Unknown History (Arthritis Pain (diclofenac)) estradiol 10 mcg vaginal tablet 10 mcg vaginal 2XW 04/05/22 12/27/22 Unknown History (Yuvafem) fluticasone propionate 50 1 spray intranasal BID 04/05/22 12/27/22 Unknown History mcg/actuation nasal spray,suspension (Allergy Relief (fluticasone)) garlic 200 mg tablet 200 mg PO DAILY 04/05/22 12/27/22 Unknown History omega-3 fatty acids 1,000 mg 1,000 mg PO DAILY 04/05/22 12/27/22 Unknown History capsule trazodone 100 mg tablet 100 mg PO BEDTIME 04/05/22 04/05/22 Unknown History valacyclovir 500 mg tablet 500 mg PO DAILY 04/05/22 12/27/22 Unknown History duloxetine 20 mg capsule,delayed 20 mg PO BID 01/02/23 01/02/23 01/02/23 History release (Cymbalta) Exam Exam Date and Time: June 25, 2023 0830 Height,Weight and Vital Signs: Height 5 ft 5 in Weight 65.317 kg Assessment and Plan Assessment Anesthesia Assessment: Chart Reviewed Final Anesthetic Review Family History of Problems with Anesthesia: No History of Problems with Anesthesia: No Documented by User: Roslyn Bonilla DO 06/26/23 14:40 [facility] Past Medical History Medical History Fibromyalgia History of benign breast biopsy IBS (irritable bowel syndrome) Hypercholesteremia Squamous cell carcinoma in situ Depression Allergic rhinitis GERD (gastroesophageal reflux disease) Family History Family history of problems with anesthesia: No Surgical History Surgical History History of hand surgery Hx of section History of esophagogastroduodenoscopy (EGD) Hx of colonoscopy History of Problems with Anesthesia: No Social History Social History Household Members: Spouse Housing: House Are you a primary customer care voice consultant to a significant other at home: No Do you presently have visiting nurse or other home services: No Alcohol intake: current Alcohol intake frequency: a few times a month Alcohol type: wine Patient Tobacco Use Status: Never used Tobacco e-Cigarette/Vaping Use: Never Used Second Hand Smoke Exposure: No Use of substances other than those prescribed or required for medical reasons: No Are you DNR?: No Advance Directives: No Advance Directives Information Provided: Yes Advance Directives on File: No service: No Current occupational status: retired Current occupation: Retired as of today Meds Allergies Allergy/AdvReac Type Severity Reaction Status Date / Time doxycycline Allergy Intermediate Nausea and Verified 06/13/23 09:33 Vomiting metronidazole [From Flagyl] Allergy Intermediate STOMACH Verified 06/13/23 09:33 ACHE/? HEADACHES sulfamethoxazole Allergy Intermediate Nausea and Verified 06/13/23 09:33 [From Bactrim] Vomiting sumatriptan [From Imitrex] Allergy Intermediate Nausea and Verified 06/13/23 09:33 Vomiting trimethoprim [From Bactrim] Allergy Intermediate Nausea and Verified 06/13/23 09:33 Vomiting Home Medications Medication Instructions Recorded Confirmed Last Taken Type bupropion HCl 300 mg 24 hr tablet, 300 mg PO QAM 04/05/22 12/27/22 01/02/23 History extended release buspirone 15 mg tablet 15 mg PO BID 04/05/22 12/27/22 01/02/23 History calcium carbonate 600 mg-vitamin cap PO DAILY 04/05/22 04/05/22 Unknown History D3 5 mcg (200 unit) capsule (Calcium 600 + D(3)) clotrimazole-betamethasone 1 1 appl topical BID PRN Rash 04/05/22 12/27/22 Unknown History %-0.05 % topical cream diclofenac sodium 1 % topical gel 2 g topical QID PRN Pain 04/05/22 12/27/22 Unknown History (Arthritis Pain (diclofenac)) estradiol 10 mcg vaginal tablet 10 mcg vaginal 2XW 04/05/22 12/27/22 Unknown History (Yuvafem) fluticasone propionate 50 1 spray intranasal BID 04/05/22 12/27/22 Unknown History mcg/actuation nasal spray,suspension (Allergy Relief (fluticasone)) garlic 200 mg tablet 200 mg PO DAILY 04/05/22 12/27/22 Unknown History omega-3 fatty acids 1,000 mg 1,000 mg PO DAILY 04/05/22 12/27/22 Unknown History capsule trazodone 100 mg tablet 100 mg PO BEDTIME 04/05/22 04/05/22 Unknown History valacyclovir 500 mg tablet 500 mg PO DAILY 04/05/22 12/27/22 Unknown History duloxetine 20 mg capsule,delayed 20 mg PO BID 01/02/23 01/02/23 01/02/23 History release (Cymbalta) Exam Exam Date and Time: June 26, 2023 1400 Height,Weight and Vital Signs: Height 5 ft 5 in Weight 65.317 kg Vital Signs Temperature 99.2 F 06/26/23 12:06 Pulse Rate 94 06/26/23 12:06 Respiratory Rate 16 06/26/23 12:06 Blood Pressure 142/84 H 06/26/23 12:06 Pulse Oximetry 98 06/26/23 12:06 Oxygen Delivery Method Room Air 06/26/23 12:06 Temperature 99.2 F 06/26/23 12:06 Pulse Rate 94 06/26/23 12:06 Respiratory Rate 16 06/26/23 12:06 Blood Pressure 142/84 H 06/26/23 12:06 Pulse Oximetry 98 06/26/23 12:06 Oxygen Delivery Method Room Air 06/26/23 12:06 Airway Mallampati Class: II TM Dist: >3cm Neck ROM: Full Loose/Missing/Broken Teeth: No Heart: S1S2 Lungs: CTAB Assessment and Plan Assessment Anesthesia Assessment: Anesthesia Plan Discussed and Chart Reviewed Final Anesthetic Review Family History of Problems with Anesthesia: No History of Problems with Anesthesia: No NPO: Yes ASA Class: II Final Preanesthetic Review: No Changes in Pt Med Stat, Meds/Allgs Chart Reviewed, Consent Obtained/Reviewed and Anes Risks/Benef Reviewed Patient Risk: Low Procedure Risk: Low Anesthetic Plan Anesthetic Plan: GA, Regional Block and Agree w/ Assess. and Plan Disposition: Standard PACU
--- NOTE | 2023-06-26 15:57 | PM.OP ---
Brief Operative Note Date of Service: 06/26/23 Pre-op diagnosis: right RTC tear Post-op diagnosis: same Procedure: Right RTC repair with SAD Implants: Willett and Nephew medial row double loaded x 2 and helacoil knotless 4.5 lateral row x 2 Surgeon: Say Patterson MD Anesthesia: GETA Was an Biofuels Plant Superintendent used for this Procedure?: Yes Biofuels Plant Superintendent: Melissa Kiser Estimated blood loss (mL): 25 IV fluids (mL): 800 Pathology: none sent Condition: stable Disposition: PACU
[2023-06-26 16:03] VITALS: BP 131/73; PULSE 81; RESP 17; TEMP 37.1; O2SAT 100
[2023-06-26 16:08] VITALS: BP 118/74; PULSE 82; RESP 18; O2SAT 100
[2023-06-26 16:13] VITALS: BP 123/73; PULSE 80; RESP 17; O2SAT 99
[2023-06-26 16:18] VITALS: BP 132/88; PULSE 81; RESP 18; O2SAT 99
[2023-06-26 16:33] VITALS: BP 133/82; PULSE 79; RESP 18; TEMP 36.4; O2SAT 97
--- NOTE | 2023-07-01 10:01 | P.OP_ITS ---
Operative Note Operative Note Date of Service: 06/26/23 Narrative: Date of Service: 06/26/23 Pre-op diagnosis: right RTC tear Post-op diagnosis: same Procedure: Right RTC repair with SAD Implants: [employer] medial row double loaded x 2 and helacoil knotless 4.5 lateral row x 2 Surgeon: Say Patterson MD Anesthesia: GETA Was an Data Processing Supervisor used for this Procedure?: Yes Data Processing Supervisor: Melissa Kiser Estimated blood loss (mL): 25 IV fluids (mL): 800 Pathology: none sent Condition: stable Disposition: PACU Procedure in detail: Patient was brought to the operating room and placed the the beach chair position. All bony prominences were well padded and the limb was prepped and draped in standard sterile fashion. A time out was called to identify proper site, proper procedure and proper surgeon. IV antibiotics per weight were administered. I began by making a posterolateral stab incision with a 15 blade. A blunt trochar was placed into the glenohumeral joint and I insufflated the joint with saline and a 30 degree arthroscope was placed. I established an outside- in anterior portal just distal to the biceps tendon. I then began my inspection of the glenohumeral joint. There was a an intact biceps anchor. There were minimal cartilage changes at the inferior glenoid without humeral head changes. There was a full thickness undersurface RTC tear. The subcapularis was largely intact but there was a partial thickness tear. This was debrided with a shaver. There was no additional intra-articular pathology. I then removed the trochar and entered the subacromial space. A direct lateral portal was then established and I performed a bursectomy. The cuff was then examined. There was a full thickness tear of the supraspinatus without retraction. The tear was mobile. I placed two medial row double loaded anchors after using a tap just adjacent to the articular cartilage and then brought the suture limbs ( 8) through the medial cuff. I then debrided the bare area down to bleeding bone and, using a cross bridge configuration, brought 4 limbs to each of two lateral 5.0 anchors. This re-approximated the cuff anatomy anatomically. I then performed a 5 mm decompression of the anterior acromion. Once I was satisfied with the repair final images were captured and I removed all instrumentation. Portals were closed with nylon. Patient was placed in an abduction sling, extubated and brought to the recovery room in stable condition. There were no known complications.
== END 2023-06-26 17:15 | disposition home or self-care (01) ==
LOC: HO.SSS 10:46
PROVIDERS: PCP Internal Medicine; Visit Provider Orthopaedic Surgery
PROC: (CPT 29827; principal; 2023-06-26 16:30)
DX: M75.101 Unspecified rotator cuff tear or rupture of right shoulder, not specified as traumatic (principal); E78.00 Pure hypercholesterolemia, unspecified; K21.9 Gastro-esophageal reflux disease without esophagitis
CPT/HCPCS: 29827; 29826; C1713; J0131; J0171; J0690; J1100; J2250; J2405; J3010

== ENCOUNTER → 2023-06-26 10:45 | Outpatient (BNV) | payer MEDICARE, SELFPAY | PROVIDERS: PCP Internal Medicine; Visit Provider Orthopaedic Surgery | DX: M75.101 Unspecified rotator cuff tear or rupture of right shoulder, not specified as traumatic (principal) | CPT/HCPCS: 29826; 29827 ==

== ENCOUNTER 2023-07-02 08:42 | Outpatient (AMB) | payer MEDICARE, SELFPAY ==
--- NOTE | 2023-07-02 08:44 | A.OFFVIS_ITS ---
Intake Vital Signs 07/02/23 08:47 Height 5 ft 2 in Weight 130 lb BMI 23.8 Handedness Right Intake Visit Reasons: PO RT SHLD RTC Repair 06/26/23NE Intake Note: Juliet is a 68 year old right hand dominant female who presents today for a post op appointment s/p right shoulder RTC repair 06/26/23 NE. Patient reports she is having so me discomfort on her shoulder but it feels okay. She states getting a sharp pain here and there but nothing to unbearable. Allergies doxycycline Allergy (Intermediate, Verified 07/02/23 08:44) Nausea and Vomiting metronidazole [From Flagyl] Allergy (Intermediate, Verified 07/02/23 08:44) STOMACH ACHE/? HEADACHES sulfamethoxazole [From Bactrim] Allergy (Intermediate, Verified 07/02/23 08:44) Nausea and Vomiting sumatriptan [From Imitrex] Allergy (Intermediate, Verified 07/02/23 08:44) Nausea and Vomiting trimethoprim [From Bactrim] Allergy (Intermediate, Verified 07/02/23 08:44) Nausea and Vomiting HPI PO RT SHLD RTC Repair 06/26/23NE HPI Details 68-year-old right hand dominant female pk dupont presents in the office today for 6 days status post right shoulder rotator cuff repair with SAD, which was p erformed on 06/26/[address] Patterson. The patient reports she is having some discomfort in the right shoulder, but states it feels okay. She claims to have a sharp pain intermittently but nothing unbearable. The patient presented in the office today with her who expressed concern about her pain management. He express the morphine ER 15 mg PO Q12H and percocet 5-325 mg PO Q4-6H PRN was not having an effect on her pain. He requested that the patient be prescribed something else like gabapentin. PFSH Medical History Fibromyalgia History of benign breast biopsy IBS (irritable bowel syndrome) Hypercholesteremia Squamous cell carcinoma in situ Depression Allergic rhinitis GERD (gastroesophageal reflux disease) Surgical History History of hand surgery Hx of section History of esophagogastroduodenoscopy (EGD) Hx of colonoscopy Social History Household Members: Spouse Housing: House Are you a primary care transport nurse to a significant other at home: No Do you presently have visiting nurse or other home services: No Alcohol intake: current Alcohol intake frequency: a few times a month Alcohol type: wine Patient Tobacco Use Status: Never used Tobacco e-Cigarette/Vaping Use: Never Used Second Hand Smoke Exposure: No service: No Current occupational status: retired Current occupation: Retired as of today Review of Systems Const All systems reviewed & are unremarkable except as noted in HPI and below Physical Exam Vital Signs: BMI result Body Mass Index 23.8 Const General: cooperative, healthy appearing and no acute distress Resp Effort & Inspection: normal respiratory effort and able to speak in complete sentences Cardio Rate: regular rate Peripheral pulses: Peripheral pulses 2+ throughout GI Palpation (GI): Soft to palpation Skin Lesions: no lesions Rashes: no rashes Extrem Other: Right shoulder: Incision site is clean, dry, intact. No surrounding erythema or drainage. No signs of infection. Forward flexion and abduction to 45 degrees. External rotation to neutral. NVI. Assessment & Plan Assessment & Plan (1) S/P rotator cuff repair: Comment: Right shoulder rotator cuff repair with SAD 06/26/2023 Dr. Say Patterson Code(s): Z98.890 - Other specified postprocedural states Plan Ms. Ordoñez is a 68-year-old right hand dominant female who presents in the office today for 6 days status post right shoulder rotator cuff repair with SAD, which was performed on 06/26/[address] Patterson. The patient reports she is osuna ving some discomfort in the right shoulder, but states it feels okay. She claims to have a sharp pain intermittently but nothing unbearable. The patient presented in the office today with her who expressed concern about her pain management. He express the morphine ER 15 mg PO Q12H and percocet 5-325 mg PO Q4-6H PRN was not having an effect on her pain. He requested that the patient be prescribed something else like gabapentin. I educated the patient that gabapentin is not an appropriate medication for pain control status post shoulder surgery and therefore would be less effective co mpared to the morphine and Percocet. The patient also reports she has not been taking the Percocet every 4 hours as it is prescribed. She states she does not get full pain relief. I re-educated the patient and her that she will not have full pain relief but the goal would be for her to have her pain at a minimal or tolerable level. Sutures were removed and steri-stripes were applied. The patient will be referred to physical therapy. She will remain in the sling for 6 weeks. Follow up will be in 4 weeks, or sooner if needed. Patient Instructions: Scribed for Melissa Kiser PA-C by Caitlin Hernandes district medical examiner, on 07/02/2023 at 8:47 am, EST. Coding Level of Care Code Global (11566) Diagnoses S/P rotator cuff repair Z98.890
[2023-07-02 08:47] VITALS: BMI 23.8
== END 2023-07-02 09:29 | disposition home or self-care (01) ==
PROVIDERS: PCP Internal Medicine; Visit Provider Physician Assistant
DX: M75.101 Unspecified rotator cuff tear or rupture of right shoulder, not specified as traumatic (principal); Z48.89 Encounter for other specified surgical aftercare
CPT/HCPCS: 99024

== ENCOUNTER → 2023-07-02 08:42 | Outpatient (BNVA) | payer MEDICARE, SELFPAY | PROVIDERS: PCP Internal Medicine; Visit Provider Physician Assistant ==

== ENCOUNTER 2023-08-01 10:59 | Outpatient (AMB) | payer MEDICARE, SELFPAY ==
--- NOTE | 2023-08-01 11:04 | A.OFFVIS_ITS ---
Intake Intake Visit Reasons: PO RT SHLD RTC Repair 06/26/23NE Allergies doxycycline Allergy (Intermediate, Verified 07/02/23 08:44) Nausea and Vomiting metronidazole [From Flagyl] Allergy (Intermediate, Verified 07/02/23 08:44) STOMACH ACHE/? HEADACHES sulfamethoxazole [From Bactrim] Allergy (Intermediate, Verified 07/02/23 08:44) Nausea and Vomiting sumatriptan [From Imitrex] Allergy (Intermediate, Verified 07/02/23 08:44) Nausea and Vomiting trimethoprim [From Bactrim] Allergy (Intermediate, Verified 07/02/23 08:44) Nausea and Vomiting HPI PO RT SHLD RTC Repair 06/26/23NE HPI Details 68-year-old right hand dominant female pk dupont presents in the office today for 1 month status post right shoulder rotator cuff repair with SAD, which was performed on 06/26/[address] Patterson. The patient confirms participating in physical therapy, but states she has not had a lot of sessions. She states she does not have any other appointments after 08/07. She reports she has been working on the exercises at home. She states she has been using her left upper extremity more and how has pain in the left bicep area. She is unable to take NSAID?s due to kidney issues. [facility] Medical History Fibromyalgia History of benign breast biopsy IBS (irritable bowel syndrome) Hypercholesteremia Squamous cell carcinoma in situ Depression Allergic rhinitis GERD (gastroesophageal reflux disease) Surgical History History of hand surgery Hx of section History of esophagogastroduodenoscopy (EGD) Hx of colonoscopy Social History Household Members: Spouse Housing: House Are you a primary healthcare administration intern to a significant other at home: No Do you presently have visiting nurse or other home services: No 75 years or older and lives alone: No Alcohol intake: current Alcohol intake frequency: a few times a month Alcohol type: wine Patient Tobacco Use Status: Never used Tobacco e-Cigarette/Vaping Use: Never Used Second Hand Smoke Exposure: No service: No Current occupational status: retired Current occupation: Retired as of today Review of Systems Const All systems reviewed & are unremarkable except as noted in HPI and below Physical Exam Const General: cooperative, healthy appearing and no acute distress Resp Effort & Inspection: normal respiratory effort and able to speak in complete sentences Cardio Rate: regular rate Peripheral pulses: Peripheral pulses 2+ throughout GI Palpation (GI): Soft to palpation Skin Lesions: no lesions Rashes: no rashes Extrem Other: Right shoulder: Incision site is clean, dry, and intact; completely healed. Forward flexion to 90 degrees. Abduction to 80 degrees. Able to reach back pocket. NVI. Assessment & Plan Assessment & Plan (1) S/P rotator cuff repair: Comment: Right shoulder rotator cuff repair with SAD 06/26/2023 Dr. Say Patterson Code(s): Z98.890 - Other specified postprocedural states Plan Ms. Ordoñez is a 68-year-old right hand dominant female who presents in the office today for 1 month status post right shoulder rotator cuff repair with SAD, which was performed on 06/26/[address] Patterson. The patient confirms participating in physical therapy, but states she has not had a lot of sessions. She states she does not have any other appointments after 08/07. She reports she has been working on the exercises at home. She states she has been using her left upper extremity more and how has pain in the left bicep area. She is unable to take NSAID?s due to kidney issues. The patient will remain in the sling for an additional 2 weeks for her right upper extremity. She is able to come out of it on 08/13/2023. She is able to come out of the sling to let the arm hang. She will continue to work with physical therapy on ROM. I sent in a refill prescription for Percocet 5-325 mg PO Q4-6H PRN. For the left upper extremity she was educated to ice and allow the shoulder to rest. She can take Tylenol to aid for pain relief. Follow up will be in [address] Patterson, or sooner if needed. Medications: Refilled oxycodone-acetaminophen 5-325 mg (Percocet) Partial Fill upon patient request. 1 tab PO Q4-6H PRN 42 tabs 0RF pain (scale score 4-6) 7 days Patient Instructions: Scribed for Melissa Kiser PA-C by Caitlin Rodeen, medical collections specialist, on 08/01/2023 at 11:00 am, EST. Coding Level of Care Code Global (77189) Diagnoses S/P rotator cuff repair Z98.890
== END 2023-08-01 11:41 | disposition home or self-care (01) ==
PROVIDERS: PCP Internal Medicine; Visit Provider Physician Assistant
DX: Z98.890 Other specified postprocedural states (principal)
CPT/HCPCS: 99024

== ENCOUNTER → 2023-08-01 10:59 | Outpatient (BNVA) | payer MEDICARE, SELFPAY | PROVIDERS: PCP Internal Medicine; Visit Provider Physician Assistant ==

== ENCOUNTER 2023-09-04 11:00 | Outpatient (RCR) | payer MEDICARE, SELFPAY ==
--- NOTE | 2023-07-05 16:28 | MHC.PT.EP ---
[facility] [place] Office [place] Office [place] Office [address] Joan Ewing [address] [phone] F: [phone] F: [phone] F: [phone] F: [phone] Physical Therapy Plan of Care Date of Evaluation: 07/05/23 Date of Surgery: 06/26/23 Diagnosis: R SHOULDER RTC REPAIR DEBRIDEMENT SUBSCAPULARIS, REPAIR SUPRASPINATUS, 5 MM DECOMPRESSION OF THE ANTERIOR ACROMION, BURSECTOMY Assessment: Pt IS 68 YO F REFERRED TO PT FROM [facility]TH[facility] (SUR[facility] FARNS[facility]) S/P R RC REPAIR (SUPRASPINATUS REPAIR, SUBSCAP DEBRIDEMENT, SAD, BURSECTOMY) ON 06/26/23 (9 DAYS AGO). PRESENTS TO PT WITH PAIN R SHLDER, LIMITED ROM AND STRENGTH WITH LIMITED USE. OF NOTE, Pt HAD L RC REPAIR IN DECEMBER OF THIS YEAR AND CAME HERE FOR PT WITH GOOD RESULTS. SHOULD BENEFIT FROM PT TO ADDRESS THESE ISSUES Frequency and Duration: The patient will be seen 2X/WK X 8 WKS Short Term Goals: 1. INCREASED AWARENESS POSTURE AND SHLDER CARE 2. IMPROVED SLEEP 3. FULL PROM R SHLDER Mcfp Goals: 1. I HEP WITH DC EX PLAN 2. INCREASED R SHLDER AROM FLEX TO 160, ABD TO 160, ER TO 75 3. INCREASED USE R UE FOR ADS 4. DECREASED R SHLDER PAIN AT LEAST 50% WITH ADLS Treatment Plan: Modalities to reduce pain, spasms and effusion. Manual therapy to restore motion and function. Therapeutic exercise to improve strength and flexibility. Neuromuscular re-education for posture and balance. Therapeutic activities to return to functional activities of daily living. Electronically signed by: CLEMENTE CASTORENA PT Please sign and return to therapist. Thank you for your referral.
--- NOTE | 2023-09-06 16:03 | MHC.PT.DC ---
[facility] [place] Office [place] Office [place] Office [address] Joan Ewing [address] [phone] F: [phone] F: [phone] F: [phone] F: [phone] Physical Therapy Discharge Report Diagnosis: R SHOULDER RTC REPAIR DEBRIDEMENT SUBSCAPULARIS, REPAIR SUPRASPINATUS, 5 MM DECOMPRESSION OF THE ANTERIOR ACROMION, BURSECTOMY Date of Surgery: 06/26/23 Date of Evaluation: 07/05/23 Date of Discharge: 09/06/23 Treatments to Date: 16 Cancellations to Date: 15 No Shows to Date: Discharge Status: Improved Function Independent with HEP Discharge Summary: PER LAST NOTE BY MIKKI SAN PTA Pt independent w/HEP Significant improvement w/SPADI Electronically signed by: CLEMENTE CASTORENA PT Please sign and return to therapist. Thank you for your referral.
== END 2023-09-06 16:04 | disposition home or self-care (01) ==
LOC: HO.PT 11:00
PROVIDERS: PCP Internal Medicine; Visit Provider Physician Assistant
DX: Z98.890 Other specified postprocedural states (principal)
CPT/HCPCS: 97110; 97140; 97161; 97530; 97535

== ENCOUNTER 2023-09-12 10:30 | Outpatient (AMB) | payer MEDICARE, SELFPAY ==
--- NOTE | 2023-09-12 10:43 | A.OFFVIS_ITS ---
Intake Intake Visit Reasons: PO-RT SHLD RTC Repair 06/26/23NE Intake Note: Juliet is a 68 year old right hand dominant female who presents today for a post op appointment s/p right shoulder RTC repair 06/26/23 NE. Allergies doxycycline Allergy (Intermediate, Verified 07/02/23 08:44) Nausea and Vomiting metronidazole [From Flagyl] Allergy (Intermediate, Verified 07/02/23 08:44) STOMACH ACHE/? HEADACHES sulfamethoxazole [From Bactrim] Allergy (Intermediate, Verified 07/02/23 08:44) Nausea and Vomiting sumatriptan [From Imitrex] Allergy (Intermediate, Verified 07/02/23 08:44) Nausea and Vomiting trimethoprim [From Bactrim] Allergy (Intermediate, Verified 07/02/23 08:44) Nausea and Vomiting HPI PO-RT SHLD RTC Repair 06/26/23NE HPI Details Juliet is a 68 year old woman who presents ~11 weeks S/P right RTC repair with SAD. She says she is doing okay but she continues to have pain in her shoulder, both with use and with touch. She describes hypersensitivity, an occasional pinching pain, and generalized aching in her shoulder. She says this pain is more occasional but she is concerned about this. She wants to know if she should use heat or ice to help her pain. She has just completed her course of PT, and continues to perform at-home exercises daily. She says she has been modifying her activities, such as avoiding any lifting activities, but she feels she tends to overdo her activities using her shoulders and is worried about knowing her limits. She tries to stay active and live a healthy lifestyle. [facility] Medical History Fibromyalgia History of benign breast biopsy IBS (irritable bowel syndrome) Hypercholesteremia Squamous cell carcinoma in situ Depression Allergic rhinitis GERD (gastroesophageal reflux disease) Surgical History History of hand surgery Hx of section History of esophagogastroduodenoscopy (EGD) Hx of colonoscopy Social History Household Members: Spouse Housing: House Are you a primary child care center administrator to a significant other at home: No Do you presently have visiting nurse or other home services: No 75 years or older and lives alone: No Alcohol intake: current Alcohol intake frequency: a few times a month Alcohol type: wine Patient Tobacco Use Status: Never used Tobacco e-Cigarette/Vaping Use: Never Used Second Hand Smoke Exposure: No service: No Current occupational status: retired Current occupation: Retired as of today Review of Systems Const All systems reviewed & are unremarkable except as noted in HPI and below Physical Exam Const General: no acute distress, alert and awake Orientation/consciousness: patient oriented x3 HEENT Head: Yes normocephalic and Yes atraumatic Eyes EOM: EOMs intact bilaterally Resp Effort & Inspection: normal respiratory effort and able to speak in complete sentences Cardio Jugular venous distension: no JVD Skin General skin exam: turgor normal Rashes: no rashes Neuro General: patient oriented x3 Extrem Other: mild scapular recruitment Psych Appearance: grossly normal Affect: normal affect Attitude: cooperative Assessment & Plan Assessment & Plan (1) S/P rotator cuff repair: Comment: Right shoulder rotator cuff repair with SAD 06/26/2023 Dr. Say Patterson Code(s): Z98.890 - Other specified postprocedural states Plan: Doing well continue PT and ROM Plan Scribed for Say Patterson MD by Irving Asencio, outside medical sales representative, on 09/12/23 at 11:12 AM, EST. Coding Level of Care Code Global (55373) Diagnoses S/P rotator cuff repair Z98.890
== END 2023-09-12 11:16 | disposition home or self-care (01) ==
PROVIDERS: PCP Internal Medicine; Visit Provider Orthopaedic Surgery
DX: Z98.890 Other specified postprocedural states (principal)
CPT/HCPCS: 99024

== ENCOUNTER → 2023-09-12 10:30 | Outpatient (BNVA) | payer MEDICARE, SELFPAY | PROVIDERS: PCP Internal Medicine; Visit Provider Orthopaedic Surgery | DX: Z98.890 Other specified postprocedural states (principal) | CPT/HCPCS: 99212 ==

== ENCOUNTER 2023-12-12 10:24 | Outpatient (AMB) | payer MEDICARE, SELFPAY ==
--- NOTE | 2023-12-12 10:31 | MHC.OFFVIS ---
Intake Intake Visit Reasons: OV-RT SHLD RTC Repair 06/26/23NE-F/U Intake Note: Juliet is a 68 year old right hand dominant female who presents today for a post op appointment s/p right shoulder RTC repair 06/26/23 NE. Patient reports that she is doing well, has increased pain with rainy weather. Her ROM has increased significantly which she is pleased with. Allergies doxycycline Allergy (Intermediate, Verified 12/12/23 10:31) Nausea and Vomiting metronidazole [From Flagyl] Allergy (Intermediate, Verified 12/12/23 10:31) STOMACH ACHE/? HEADACHES sulfamethoxazole [From Bactrim] Allergy (Intermediate, Verified 12/12/23 10:31) Nausea and Vomiting sumatriptan [From Imitrex] Allergy (Intermediate, Verified 12/12/23 10:31) Nausea and Vomiting trimethoprim [From Bactrim] Allergy (Intermediate, Verified 12/12/23 10:31) Nausea and Vomiting HPI OV-RT SHLD RTC Repair 06/26/23NE-F/U HPI Details Patient is doing well. She is full range of motion. She has no pain. She has no complaints. [facility] Medical History Fibromyalgia History of benign breast biopsy IBS (irritable bowel syndrome) Hypercholesteremia Squamous cell carcinoma in situ Depression Allergic rhinitis GERD (gastroesophageal reflux disease) Surgical History History of hand surgery Hx of section History of esophagogastroduodenoscopy (EGD) Hx of colonoscopy Social History Household Members: Spouse Housing: House Are you a primary skin care therapist to a significant other at home: No Do you presently have visiting nurse or other home services: No 75 years or older and lives alone: No Alcohol intake: current Alcohol intake frequency: a few times a month Alcohol type: wine Patient Tobacco Use Status: Never used Tobacco e-Cigarette/Vaping Use: Never Used Second Hand Smoke Exposure: No service: No Current occupational status: retired Current occupation: Retired as of today Physical Exam Extrem Other: Portals clean dry and intact Full painless range of motion without scapular recruitment. 5/5 empty can bilaterally Assessment & Plan Assessment & Plan (1) S/P rotator cuff repair: Comment: Right shoulder rotator cuff repair with SAD 06/26/2023 Dr. Say Patterson Code(s): Z98.890 - Other specified postprocedural states Plan: Status post right rotator cuff repair almost 6 months ago. She is doing very well considering. She has excellent range of motion. She may return to normal activities as tolerated. There are no restrictions. She may follow up p.r.n.. Coding Level of Care Code Est Pt Level 3 (18121) Diagnoses S/P rotator cuff repair Z98.890
== END 2023-12-12 11:56 | disposition home or self-care (01) ==
PROVIDERS: PCP Internal Medicine; Visit Provider Orthopaedic Surgery
DX: M75.101 Unspecified rotator cuff tear or rupture of right shoulder, not specified as traumatic (principal)
CPT/HCPCS: 99212

== ENCOUNTER → 2023-12-12 10:24 | Outpatient (BNVA) | payer MEDICARE, SELFPAY | PROVIDERS: PCP Internal Medicine; Visit Provider Orthopaedic Surgery | DX: Z09 Encounter for follow-up examination after completed treatment for conditions other than malignant neoplasm (principal); Z98.890 Other specified postprocedural states | CPT/HCPCS: 99212 ==